=== PATIENT | female | born 1945 | race Caucasian/White ===

== ENCOUNTER → 2018-07-21 | Outpatient (CLI) | payer OTHER, MEDICARE | LOC: M.RAD 10:14 | DX: M25.711 Osteophyte, right shoulder (principal); M25.712 Osteophyte, left shoulder; M25.78 Osteophyte, vertebrae; J02.9 Acute pharyngitis, unspecified; R10.9 Unspecified abdominal pain; R19.7 Diarrhea, unspecified; G89.29 Other chronic pain; Z88.5 Allergy status to narcotic agent; Z88.1 Allergy status to other antibiotic agents; Z88.8 Allergy status to other drugs, medicaments and biological substances; Z91.048 Other nonmedicinal substance allergy status ==

== ENCOUNTER → 2019-06-25 | Outpatient (CLI) | payer OTHER, MEDICARE | LOC: M.RAD 11:05 | DX: J18.1 Lobar pneumonia, unspecified organism (principal); J98.11 Atelectasis ==